=== PATIENT | female | born 1975 | race Caucasian/White ===

== ENCOUNTER 2022-08-26 05:30 | Emergency (ER) | payer SELFPAY ==
[~2022-08-26] VITALS: Ht 162.6 cm; Wt 71.2 kg
[2022-08-26 05:39] VITALS: BP 120/90
--- NOTE | 2022-08-26 05:46 | NUR ---
PT AMBULATES WITH STEADY GAIT TO BED 2.
--- NOTE | 2022-08-26 06:00 | NUR ---
46/F BIB SELF C/C 05/17 "BURNING" EPIGASTRIC PAIN X1DAY. + N/V/C DENIES ANY DIARRHEA , CP, SOB, FEVER OR CHILLS AT THIS TIME. PATIENT STATED THAT SHE TOOK ASPIRIN FOR PAIN WITH SOME RELIEF. PATIENT IS AAOX4 AND AMBULATORY. PLACED ON MONITOR IN BED. BED LOW AND LOCKED. JOSUE SIDE RAILS FOR SAFETY. PMHX ULCER ALLERGIES PCN
[2022-08-26 06:02] LABS: BASOPHILS # (AUTO) 0.2 K/uL (0.00-0.22); BASOPHILS % (AUTO) 1.1 % (0.0-2.0); EOSINOPHILS # (AUTO) 0.3 K/uL (0-0.4); EOSINOPHILS % (AUTO) 1.7 % (0.0-4.0); HEMATOCRIT 39.3 % (36-48); HEMOGLOBIN 12.7 g/dL (12.0-16.0); LYMPHOCYTES # (AUTO) 2.4 K/uL (2.5-16.5); MEAN CORPUSCULAR HEMOGLOBIN 24 pg (27-31); MEAN CORPUSCULAR HGB CONC 32 g/dL (33-37); MONOCYTES % (AUTO) 7.1 % (1.7-9.3); NEUTROPHILS # (AUTO) 10.9 K/uL (1.8-7.7); NEUTROPHILS % (AUTO) 74.1 % (42.2-75.2); PLATELET COUNT (AUTO) 397 K/uL (140-450); RED BLOOD CELL COUNT(AUTO) 5.24 MIL/uL (4.20-5.40); WHITE BLOOD COUNT (AUTO) 14.7 K/uL (4.8-10.8)
[2022-08-26 06:23] LABS: APPEARANCE,URINE HAZY (CLEAR); BILIRUBIN,URINE NEGATIVE (NEGATIVE); BLOOD, URINE NEGATIVE (NEGATIVE); COLOR,URINE YELLOW (YELLOW); LEUKOCYTE ESTERASE ,URINE NEGATIVE (NEGATIVE); NITRITE, URINE NEGATIVE (NEGATIVE); UGLUCOSE NEGATIVE (NEGATIVE)
--- NOTE | 2022-08-26 06:30 | NUR ---
MARYANNE MCFADDEN AT BEDSIDE ASSESSING PATIENT
[2022-08-26] MEDS ORDERED: FAMOTIDINE 20 MG TAB PO ONE (06:35)
[2022-08-26] MEDS ORDERED: ALUMINUM HYD/MAG/SIMETHICONE 30 ML UDC PO ONE (06:35)
[2022-08-26 06:43] LABS: ALBUMIN 3.4 g/dL (3.4-5.0); ANION GAP 14.7 (8-16); CARBON DIOXIDE 24.7 mmol/L (21-32); CREATININE 0.8 mg/dL (0.6-1.3); POTASSIUM 3.4 mmol/L (3.5-5.1); TOTAL BILIRUBIN 0.2 mg/dL (0.0-1.0)
--- NOTE | 2022-08-26 06:48 | NUR ---
PATIENT MEDICATED PER ORDERS, TOLERATED WELL. CONTINUES TO BE ON MONITOR. BED LOW AND LOCKED. JOSUE SIDE RAILS FOR SAFETY. ALL NEEDS MET.
--- NOTE | 2022-08-26 07:02 | NUR ---
PATIENT DENIES PAIN AT THIS TIME. STATED THAT THE MEDICATION HELPED. PAIN IS 10/10. ALL NEEDS MET.
[2022-08-26] MEDS ORDERED: FAMO-92 PO (07:14)
[2022-08-26] MEDS ORDERED: ONDA-188 PO (07:14)
[2022-08-26 07:18] VITALS: BP 125/85
--- NOTE | 2022-08-26 07:20 | NUR ---
Patient discharged with v/s stable. Written and verbal after care instructions given and explained. Patient alert, oriented and verbalized understanding of instructions. Ambulatory with steady gait. All questions addressed prior to discharge. ID band removed. Patient advised to follow up with PMD. Rx of PEPCID AND ZOFRAN given. Patient educated on indication of medication including possible reaction and side effects. Opportunity to ask questions provided and answered.
== END 2022-08-26 07:20 | disposition home or self-care (01) ==
LOC: MED 05:30
DX: K29.70 Gastritis, unspecified, without bleeding (principal); F12.90 Cannabis use, unspecified, uncomplicated; Z98.890 Other specified postprocedural states
CPT/HCPCS: 36415; 80053; 81003; 81025; 83690; 85025; 93005; 99284